=== PATIENT | male | born 1935 | race Caucasian/White ===

== ENCOUNTER 2019-04-29 07:56 | Day surgery (SDC) | payer OTHER ==
--- NOTE | 2019-04-27 15:13 | RAD REPORT ---
EXAM DESCRIPTION: RAD - Chest Pa And Lat (2 Views) - 04/27/2019 3:04 pm CLINICAL HISTORY: Preop chest, pending hernia repair COMPARISON: June 2017 TECHNIQUE: PA and lateral views of the chest were obtained. FINDINGS: The lungs are clear infiltrate, mass or failure finding. Fibrotic lung pattern matches com parison. Diaphragm is flattened with increased retrosternal space. Heart size is normal and central vasculature is within normal limits. No pleural effusion or pneumothorax seen. No acute bony findi ng noted. No aortic abnormality. IMPRESSION: COPD similar to June 2017. No acute finding.
[2019-04-27 15:47] LABS: Absolute Lymphocytes (CBC) 1.9 K/uL (0.7-4.9); Basophils % 0.9 % (0-1.3); Eosinophils % 1.8 % (0-4.4); Hematocrit 45.5 % (39.6-49.0); Lymphocytes % 27.4 % (15.3-44.8); MPV 7.1 fL (7.6-11.3); Monocytes % 12.3 % (3.3-12.3); RBC Red Blood Cell Count 4.82 M/uL (4.33-5.43)
[2019-04-27 15:51] LABS: Potassium 4.7 mmol/L (3.5-5.1)
--- NOTE | 2019-04-28 14:51 | EKG ---
Test Date: 2019-04-27 Test Time: 14:54:21 Vacuum Forming Machine Operator: VIVIAN MEASUREMENT RESULTS: Intervals: Rate: 59 SC: 166 QRSD: 134 QT: 432 QTc: 427 [place]: P: 66 SC: 166 QRS: 84 T: 64 INTERPRETIVE STATEMENTS: Sinus bradycardia Right bundle branch block Abnormal ECG Compared to ECG 06/12/2005 06:44:00 Right bundle-branch block now present Sinus rhythm no longer present Sinus arrhythmia no longer present Electronically Signed On 04-28-19 14:47:35 CDT by Kishan Douglas
[2019-04-29] MEDS ORDERED: Ringers Lactate 1,000 ML IV ONE (08:49)
[2019-04-29] MEDS ORDERED: CEFAZOLIN/SWI 1gm 1 GM/10 ML SYR ONE (08:49)
[2019-04-29] MEDS ORDERED: BUPIVACAINE 0.5% PF 10 ML VIAL ONE (09:34)
[2019-04-29] MEDS ORDERED: PROPOFOL 200 MG/20 ML VIAL IV ONE (10:53)
[2019-04-29] MEDS ORDERED: FENTANYL CITR 100 MCG/2 ML ONE (10:54)
[2019-04-29] MEDS ORDERED: LIDOCAINE 2% MPF 5 ML VIAL ONE (10:54)
[2019-04-29] MEDS ORDERED: ONDANSETRON 4 MG/2 ML VIAL ONE (10:55)
[2019-04-29] MEDS ORDERED: ROCURONIUM 50 MG/5 ML VIAL IV ONE (10:55)
--- NOTE | 2019-04-29 11:35 | P.BOP ---
Preoperative diagnosis: right tender inguinal hernia Postoperative diagnosis: same Primary procedure: Open repair of right tender inguinal hernia with mesh Estimated blood loss: <10cc Specimen: hernia sac Findings: as above Anesthesia: General Complications: None Transferred to: Recovery Room Condition: Good
[2019-04-29] MEDS ORDERED: GLYCOPYRROLATE 0.2 MG/ML SYR ONE (11:48)
[2019-04-29] MEDS ORDERED: NEOSTIGMINE 1 MG/ML -10 ML VIAL ONE (11:49)
[2019-04-29] MEDS ORDERED: CODEINE 30MG/APAP 300MG TAB ONE (13:01)
--- NOTE | 2019-04-29 22:57 | OP ---
Date of Procedure: 04/29/2019 Surgeon: Ry Ramos MD Preoperative Diagnosis: Right tender inguinal hernia. Postoperative Diagnosis: Right tender inguinal hernia. Procedure: Open repair of right tender inguinal hernia with mesh. Specimen: Hernia sac. Anesthesia: General plus local. Indications: This is the case of an 83-year-old patient, comes to us with above diagnosis. Fully ex plained the benefits, alternatives, and risks of open repair of a right inguinal hernia with mesh whi ch include, but not limited to infection, bleeding, damage to adjacent structures, anesthesia complic ation, chronic pain, chronic numbness, VA, even . He also understands this might not relieve an y symptoms, he might need more than one surgical intervention. He understood, signed a consent. The patient was explained the pros and cons of mesh used and in this case also allowed to ask questions and answered to his satisfaction. After discussing pros and cons of a mesh, he did allow me to use m esh. Description Of Procedure: The patient was brought to the operating room, placed in supine position. Anesthesia was done without complication. A time-out was called. Right inguinal area was prepped a nd draped in sterile fashion. Local anesthesia was applied followed by sharp incision of the skin. The Brittany's fascia was opened under direct visualization. External oblique aponeurosis was identifi ed and opened along the fibers to connect to the superficial inguinal ring. Ilioinguinal nerve and i liohypogastric nerve were protected behind external oblique aponeurosis. Sofía was placed around t he spermatic cord. Carefully we proceeded to resect the hernia sac from the spermatic cord protectin g the spermatic cord structures. Hernia sac was opened, content reduced, and then twisted and suture ligated with Prolene. The hernia sac sent for specimen. Mesh plug was placed over the area, secure d in place with VersaTack. A mesh sheet was placed in the floor of the canal securing that to the pu bic tubercle, shelving edge of inguinal ligament and transversalis fascia, and the tail looped around the spermatic cord without a strangulation. Area was irrigated and suctioned. At that moment, I pr oceeded to place the ilioinguinal nerve and iliohypogastric nerve back into the inguinal canal, recon structed the superficial inguinal ring with Prolene and then closed the external oblique aponeurosis making sure the nerves were not included. The area was irrigated. Then, the Brittany's fascia closed with 3-0 chromic and skin with ger. Sponge count and instrument counts were correct. The patien t tolerated the procedure well. The patient was sent to recovery in stable condition. At the end of the case, testicles are within the scrotum. AMANDA/NGA Voice ID: [id number] Report ID: [id number]
--- NOTE | 2019-04-29 23:00 | DS ---
Date of Discharge: 04/29/2019 Diagnosis: Tender right inguinal hernia. Procedures: Open repair of right tender inguinal hernia with mesh. Disposition: Home. Activity: As tolerated. No heavy lifting. Followup: Follow up in my office in 1 week. Call for appointment [phone]. Keep area dry for 48 ho urs, then may shower. Keep ger intact. Medications: Include Tylenol No. 4 q.4 hours p.r.n. pain and Bactrim DS p.o. b.i.d. AMANDA/NGA Voice ID: [id number] Report ID: [id number]
== END 2019-04-29 14:00 | disposition home or self-care (01) ==
LOC: OR 07:56
PROVIDERS: ATTEND Surgery
PROC: 0YU50JZ Supplement Right Inguinal Region with Synthetic Substitute, Open Approach (ICD-10-PCS; principal; 2019-04-29 10:45)
DX: K40.90 Unilateral inguinal hernia, without obstruction or gangrene, not specified as recurrent (principal); E78.00 Pure hypercholesterolemia, unspecified; Z79.899 Other long term (current) drug therapy; Z85.46 Personal history of malignant neoplasm of prostate
CPT/HCPCS: 49505; 93005; 85025; 80048; 36415; 88302; 71046; J2704; J2710; J3010; J0690; J2405